=== PATIENT | female | born 1935 | race Caucasian/White ===

== ENCOUNTER 2021-12-12 11:53 | Outpatient (CLI) | payer MEDICARE ==
[2021-12-12 13:47] LABS: Hemoglobin 13.6 g/dL (12.0-15.5); Mean Corpuscular HGB CONC 33.3 g/dL (32.0-36.0); Mean Corpuscular Volume 92.9 fl (81.6-98.3); Mean Platelet Volume 10.7 fl (7.4-10.4); Platelet Count 163 10x3/uL (150-450); RBC Distribution Width 13.3 % (11.5-14.5); Red Blood Cell (RBC) Count 4.39 10x6/uL (3.90-5.03)
[2021-12-12 13:59] LABS: PTT 24.7 sec (22.0-33.0); Prothrombin Time 10.6 sec (9.5-12.1)
[2021-12-12 14:04] LABS: Anion Gap 14 mmol/L (10-20); BUN (Urea Nitrogen) 22 mg/dL (9.8-20.1); Calc. Creatinine Clearance 0 mL/min (70-130); Calcium 9.6 mg/dL (7.8-10.44); Carbon Dioxide 23 mmol/L (23-31); Chloride 106 mmol/L (98-107); Estimated GFR 49; Glucose 92 mg/dL (83-110); Sodium 139 mmol/L (136-145)
== END 2021-12-12 11:54 | disposition home or self-care (01) ==
LOC: CSHLAB 11:53
PROVIDERS: ATTEND Orthopaedic Surgery
DX: Z01.818 Encounter for other preprocedural examination (principal); Z20.822 Contact with and (suspected) exposure to COVID-19; M53.3 Sacrococcygeal disorders, not elsewhere classified
CPT/HCPCS: 80048; 85027; 85610; 85730; 87811; 93005; 93010

== ENCOUNTER 2021-12-17 05:43 | Day surgery (SDC) | payer MEDICARE ==
[2021-12-13 10:59] VITALS: BMI 30.4
[2021-12-17] MEDS ORDERED: Bupivacaine 0.25% HCL 30 ML VIAL ONE (06:27)
[2021-12-17] MEDS ORDERED: EPINEPHrine 1 MG/10 ML Abboject SYRINGE ONE ×2 (06:27)
[2021-12-17] MEDS ORDERED: EPINEPHrine 1 MG/ML AMP ONE (06:29)
[2021-12-17] MEDS ORDERED: Fentanyl 100 MCG/2 ML VIAL ONE (06:37)
[2021-12-17] MEDS ORDERED: Rocuronium Bromide 10 MG/ML (10ML VIAL) ONE (06:37)
[2021-12-17] MEDS ORDERED: Dexamethasone 4 mg/ml Vial ONE (06:37)
[2021-12-17] MEDS ORDERED: PROPOFOL 20 ML ONE ×3 (06:37→08:06)
[2021-12-17] MEDS ORDERED: Lidocaine 1% PF 5 ML VIAL ONE (06:37)
[2021-12-17] MEDS ORDERED: Ondansetron PF 4 MG/2 ML Vial ONE (06:37)
[2021-12-17] MEDS ORDERED: Famotidine/PF 20 mg/2ml Vial ONE (06:53)
[2021-12-17] MEDS ORDERED: Clindamycin/D5W 900 mg/50 ml Premix Bag ONE (07:08)
[2021-12-17] MEDS ORDERED: ePHEDrine Sulfate 50 MG/10 ML VIAL ONE (07:45)
[2021-12-17] MEDS ORDERED: PHENYLEPHRINE-NS 100 MCG/ML 10 ML SYRINGE ONE (08:34)
[2021-12-17] MEDS ORDERED: Ketorolac Tromethamine 30 MG/ML VIAL ONE (09:09)
[2021-12-17] MEDS ORDERED: Glycopyrrolate 0.2 MG/ML 5 ML SYRINGE ONE (09:18)
== END 2021-12-17 11:40 | disposition home or self-care (01) ==
LOC: CSHSDC 05:43
PROVIDERS: ATTEND Orthopaedic Surgery
PROC: 0SG804Z Fusion of Left Sacroiliac Joint with Internal Fixation Device, Open Approach (ICD-10-PCS; principal; 2021-12-17)
DX: M47.898 Other spondylosis, sacral and sacrococcygeal region (principal); M46.1 Sacroiliitis, not elsewhere classified; I48.91 Unspecified atrial fibrillation; Z79.82 Long term (current) use of aspirin; Z79.899 Other long term (current) drug therapy; Z86.73 Personal history of transient ischemic attack (TIA), and cerebral infarction without residual deficits; Z91.041 Radiographic dye allergy status; Z88.0 Allergy status to penicillin; Z88.2 Allergy status to sulfonamides; Z88.8 Allergy status to other drugs, medicaments and biological substances; Z20.822 Contact with and (suspected) exposure to COVID-19
CPT/HCPCS: 27279; 72202; C1713 ×3; J0171; J1100; J1885; J2405; J2704; J3010; J3490; S0020; S0028

== ENCOUNTER 2022-07-05 10:39 | Outpatient (CLI) | payer MEDICARE ==
[2022-07-05 13:22] LABS: Hemoglobin 14.2 g/dL (12.0-15.5); Mean Corpuscular HGB CONC 32.4 g/dL (32.0-36.0); Mean Corpuscular Hemoglobin 30.2 pg (27.0-33.0); Mean Corpuscular Volume 93.2 fl (81.6-98.3); Mean Platelet Volume 11.1 fl (7.4-10.4); Platelet Count 141 10x3/uL (150-450); RBC Distribution Width 14.3 % (11.5-14.5); White Blood Cell (WBC) Count 6.3 10x3/uL (3.5-10.5)
[2022-07-05 13:38] LABS: Prothrombin Time 10.6 sec (9.5-12.1)
[2022-07-05 13:39] LABS: Anion Gap 16 mmol/L (10-20); BUN (Urea Nitrogen) 19 mg/dL (9.8-20.1); Calc. Creatinine Clearance 0 mL/min (70-130); Calcium 9.9 mg/dL (7.8-10.44); Carbon Dioxide 24 mmol/L (23-31); Chloride 105 mmol/L (98-107); Estimated GFR 58; Glucose 55 mg/dL (83-110); Potassium 4.5 mmol/L (3.5-5.1); Sodium 140 mmol/L (136-145)
== END 2022-07-05 10:40 | disposition home or self-care (01) ==
LOC: CSHLAB 10:39
PROVIDERS: ATTEND Orthopaedic Surgery
DX: Z01.812 Encounter for preprocedural laboratory examination (principal); M46.1 Sacroiliitis, not elsewhere classified; M54.18 Radiculopathy, sacral and sacrococcygeal region
CPT/HCPCS: 80048; 85027; 85610; 85730; 86850; 86900; 86901

== ENCOUNTER 2022-07-12 10:45 | Day surgery (SDC) | payer MEDICARE ==
[2022-07-05 13:22] LABS: Hemoglobin 14.2 g/dL (12.0-15.5); Mean Corpuscular HGB CONC 32.4 g/dL (32.0-36.0); Mean Corpuscular Hemoglobin 30.2 pg (27.0-33.0); Mean Corpuscular Volume 93.2 fl (81.6-98.3); Mean Platelet Volume 11.1 fl (7.4-10.4); Platelet Count 141 10x3/uL (150-450); RBC Distribution Width 14.3 % (11.5-14.5); White Blood Cell (WBC) Count 6.3 10x3/uL (3.5-10.5)
[2022-07-05 13:38] LABS: Prothrombin Time 10.6 sec (9.5-12.1)
[2022-07-05 13:39] LABS: Anion Gap 16 mmol/L (10-20); BUN (Urea Nitrogen) 19 mg/dL (9.8-20.1); Calc. Creatinine Clearance 0 mL/min (70-130); Calcium 9.9 mg/dL (7.8-10.44); Carbon Dioxide 24 mmol/L (23-31); Chloride 105 mmol/L (98-107); Estimated GFR 58; Glucose 55 mg/dL (83-110); Potassium 4.5 mmol/L (3.5-5.1); Sodium 140 mmol/L (136-145)
[2022-07-11 09:24] VITALS: BMI 33.3
[~2022-07-12 10:45] MED LIST: Bupivacaine/Epinephrine 0.25% 30 ML VIAL ONE
[2022-07-12] MEDS ORDERED: Famotidine/PF 20 mg/2ml Vial ONE (12:13)
[2022-07-12] MEDS ORDERED: PROPOFOL 20 ML ONE (14:13)
[2022-07-12] MEDS ORDERED: Fentanyl 100 MCG/2 ML VIAL ONE (14:13)
[2022-07-12] MEDS ORDERED: CEFAZOLIN 2 GM VIAL ONE (14:20)
[2022-07-12] MEDS ORDERED: SUGAMMADEX SODIUM 200 MG/2 ML VIAL ONE (14:32)
[2022-07-12] MEDS ORDERED: Phenylephrine 10 MG/ML VIAL ONE (15:17)
[2022-07-12] MEDS ORDERED: Ondansetron PF 4 MG/2 ML Vial ONE (16:09)
[2022-07-12] MEDS ORDERED: Morphine 2 MG/ML VIAL SLOW IVP PRN (16:27)
[2022-07-12] MEDS ORDERED: TETANUS, DIPHTHERIA TOX,ADULT (TDVAX) 0.5 ML VIAL IM ONE (16:27)
[2022-07-12] MEDS ORDERED: HYDROcodone/Acetaminophen 5/325 mg Tablet PO PRN (16:27)
[2022-07-12] MEDS ORDERED: MELATONIN 10 MG PO PRN (16:29)
[2022-07-12] MEDS ORDERED: CEFAZOLIN 2 GM in Sodium Chloride 0.9% 100 ML IVPB SCH (16:30)
[2022-07-12] MEDS ORDERED: Communication Order-Pharmacy FS SCH (16:30)
[2022-07-12] MEDS ORDERED: Rosuvastatin 10 MG TAB PO SCH (21:00)
[2022-07-12] MEDS ORDERED: Latanoprost 0.005% Ophth Soln 2.5 ml Bottle EA EYE SCH (21:00)
[2022-07-12] MEDS ORDERED: Non-Formulary Medication 1 EACH (Methenamine Hippurate [Methenamine Hippurate] 1 GM Tablet PO SCH (21:00)
[2022-07-12] MEDS ORDERED: Aspirin 81 mg Enteric Coated Tablet PO SCH (21:00)
[2022-07-12] MEDS ORDERED: Non-Formulary Medication 1 EACH (Famotidine [Famotidine] 40 MG Tablet) PO SCH (21:00)
[2022-07-13] MEDS ORDERED: Cholecalciferol 1,000 UNITS (25 MCG) TAB PO SCH (09:00)
[2022-07-13] MEDS ORDERED: [UNRECOGNIZED DRUG - OTHER] PO SCH (09:00)
[2022-07-13] MEDS ORDERED: Aspirin 81 mg Enteric Coated Tablet PO SCH (09:00)
[2022-07-13] MEDS ORDERED: CYANOCOBALAMIN 1000 MCG PO SCH (09:00)
[2022-07-13] MEDS ORDERED: LACTOBACILLUS ACIDOPHILUS PO SCH (09:00)
[2022-07-13] MEDS ORDERED: Levothyroxine Sodium 75 MCG TAB PO SCH (09:00)
== END 2022-07-12 17:50 | disposition home or self-care (01) ==
LOC: CSHSDC 10:45
PROVIDERS: ATTEND Orthopaedic Surgery
PROC: XRG New Technology, Joints, Fusion (ICD-10-PCS; principal; 2022-07-12)
DX: M46.1 Sacroiliitis, not elsewhere classified (principal); M54.18 Radiculopathy, sacral and sacrococcygeal region; E78.5 Hyperlipidemia, unspecified; I25.10 Atherosclerotic heart disease of native coronary artery without angina pectoris; I48.0 Paroxysmal atrial fibrillation; E03.9 Hypothyroidism, unspecified; K21.9 Gastro-esophageal reflux disease without esophagitis; Z79.899 Other long term (current) drug therapy; Z88.2 Allergy status to sulfonamides; Z88.8 Allergy status to other drugs, medicaments and biological substances; Z91.041 Radiographic dye allergy status; Z88.0 Allergy status to penicillin; Z91.013 Allergy to seafood
CPT/HCPCS: 27279; 72202; 80048; 85027; 85610; 85730; 86850; 86900; 86901; C1713 ×3; C1889; 36415; J2370; J2405; J2704; J3010; S0028

== ENCOUNTER 2024-03-19 10:23 | Observation (INO) | payer MEDICARE ==
[2024-03-19] MEDS ORDERED: Ondansetron PF 4 MG/2 ML Vial IVP PRN (10:44)
[2024-03-19] MEDS ORDERED: Acetaminophen 325 MG TAB PO PRN (10:44)
[2024-03-19 11:16] VITALS: BMI 27.8
[2024-03-19 11:31] LABS: #Basophils 0.04 10x3/uL (0.0-0.2); #Eosinophils 0.08 10x3/uL (0.0-0.5); #Monocytes 0.68 10x3/uL (0.0-1.1); #Neutrophils 7.81 10x3/uL (1.5-8.4); %Basophils 0.4 % (0.0-2.0); %Eosinophils 0.8 % (0.0-6.0); %Lymphocytes 11.3 % (18.0-47.0); %Neutrophils 80.2 % (40.0-75.0); Hematocrit 42.4 % (34.9-44.5); Hemoglobin 13.7 g/dL (12.0-15.5); Mean Corpuscular HGB CONC 32.3 g/dL (32.0-36.0); Mean Corpuscular Hemoglobin 30.2 pg (27.0-33.0); Mean Corpuscular Volume 93.4 fL (81.6-98.3); Mean Platelet Volume 10.5 fL (7.4-10.4); Platelet Count 148 10x3/uL (150-450); RBC Distribution Width 13.1 % (11.5-14.5); Red Blood Cell (RBC) Count 4.54 10x6/uL (3.90-5.03); White Blood Cell (WBC) Count 9.7 10x3/uL (3.5-10.5)
[2024-03-19 11:39] LABS: Anion Gap 12 mmol/L (10-20); BUN (Urea Nitrogen) 14 mg/dL (9.8-20.1); Calc. Creatinine Clearance 56 mL/min (70-130); Calcium 9.7 mg/dL (7.8-10.44); Carbon Dioxide 24 mmol/L (23-31); Chloride 105 mmol/L (98-107); Estimated GFR 64; Glucose 120 mg/dL (83-110); Potassium 4.4 mmol/L (3.5-5.1); Sodium 137 mmol/L (136-145)
[2024-03-19 11:46] LABS: Troponin I 0.141 ng/mL (< 0.028)
[2024-03-19] MEDS: Losartan 50 MG TAB PO SCH (14:32)
[2024-03-19] MEDS: Rosuvastatin 10 MG TAB PO SCH (22:05)
[2024-03-20 04:52] VITALS: TEMP 97.1
[2024-03-20 05:40] LABS: Anion Gap 14 mmol/L (10-20); BUN (Urea Nitrogen) 13 mg/dL (9.8-20.1); Calc. Creatinine Clearance 56 mL/min (70-130); Calcium 9.7 mg/dL (7.8-10.44); Carbon Dioxide 24 mmol/L (23-31); Chloride 104 mmol/L (98-107); Estimated GFR 64; Glucose 108 mg/dL (83-110); Sodium 137 mmol/L (136-145)
[2024-03-20 05:53] LABS: #Basophils 0.03 10x3/uL (0.0-0.2); #Eosinophils 0.24 10x3/uL (0.0-0.5); #Monocytes 0.62 10x3/uL (0.0-1.1); #Neutrophils 4.08 10x3/uL (1.5-8.4); %Basophils 0.5 % (0.0-2.0); %Eosinophils 3.7 % (0.0-6.0); %Lymphocytes 22.6 % (18.0-47.0); %Monocytes 9.6 % (0.0-10.0); %Neutrophils 63.4 % (40.0-75.0); Hematocrit 45.1 % (34.9-44.5); Hemoglobin 14.6 g/dL (12.0-15.5); Mean Corpuscular HGB CONC 32.4 g/dL (32.0-36.0); Mean Corpuscular Hemoglobin 30.3 pg (27.0-33.0); Mean Corpuscular Volume 93.6 fL (81.6-98.3); Mean Platelet Volume 10.8 fL (7.4-10.4); Platelet Count 146 10x3/uL (150-450); RBC Distribution Width 13.1 % (11.5-14.5); Red Blood Cell (RBC) Count 4.82 10x6/uL (3.90-5.03); White Blood Cell (WBC) Count 6.4 10x3/uL (3.5-10.5)
[2024-03-20 06:12] LABS: Potassium 4.8 mmol/L (3.5-5.1)
[2024-03-20] MEDS: Losartan 50 MG TAB PO SCH (08:33)
[2024-03-20] MEDS: Enoxaparin 40 MG (0.4 mL) SYRINGE SC SCH (08:33)
[2024-03-20] MEDS: Aspirin 81 mg Enteric Coated Tablet PO SCH (08:33)
[2024-03-20 14:08] VITALS: BP 138/57
== END 2024-03-20 11:37 | disposition home or self-care (01) ==
LOC: INTOOBSV 10:23 → CSHTELE 10:23
PROVIDERS: ADMIT Emergency Medicine; ATTEND Emergency Medicine
DX: R55 Syncope and collapse (principal); R79.89 Other specified abnormal findings of blood chemistry; I10 Essential (primary) hypertension; I48.0 Paroxysmal atrial fibrillation; I65.29 Occlusion and stenosis of unspecified carotid artery; I26.99 Other pulmonary embolism without acute cor pulmonale; E78.5 Hyperlipidemia, unspecified; E03.9 Hypothyroidism, unspecified; G62.9 Polyneuropathy, unspecified; J30.2 Other seasonal allergic rhinitis; M35.3 Polymyalgia rheumatica; Z95.0 Presence of cardiac pacemaker; Z86.73 Personal history of transient ischemic attack (TIA), and cerebral infarction without residual deficits; Z90.49 Acquired absence of other specified parts of digestive tract; Z90.710 Acquired absence of both cervix and uterus; Z91.041 Radiographic dye allergy status; Z88.0 Allergy status to penicillin; Z88.8 Allergy status to other drugs, medicaments and biological substances; Z88.2 Allergy status to sulfonamides; Z79.890 Hormone replacement therapy; Z79.82 Long term (current) use of aspirin; Z79.51 Long term (current) use of inhaled steroids; Z79.899 Other long term (current) drug therapy
CPT/HCPCS: 80048 ×2; 84443; 84484; 85025 ×2; 85379; 93005; 96372; 97139; 97530; 97535; G0378 ×2; J1650; 36415; 93010